=== PATIENT | male | born 1960 | race Caucasian/White ===

== ENCOUNTER → 2020-09-13 12:56 | Outpatient (BNVA) | payer MEDICARE, MEDICAID, SELFPAY | PROVIDERS: PCP Physician Assistant; Referring Provider Physician Assistant; Visit Provider Internal Medicine Endocrinology, Diabetes & Metabolism | DX: E11.3593 Type 2 diabetes mellitus with proliferative diabetic retinopathy without macular edema, bilateral (principal); E11.42 Type 2 diabetes mellitus with diabetic polyneuropathy; Z79.4 Long term (current) use of insulin; I10 Essential (primary) hypertension; E78.5 Hyperlipidemia, unspecified; E66.3 Overweight; Z68.29 Body mass index [BMI] 29.0-29.9, adult | CPT/HCPCS: 82947; 99212 ==

== ENCOUNTER → 2020-09-19 08:51 | Outpatient (BNVA) | payer MEDICARE, MEDICAID, SELFPAY | PROVIDERS: PCP Physician Assistant; Referring Provider Physician Assistant; Visit Provider Nurse Practitioner Family | DX: G47.33 Obstructive sleep apnea (adult) (pediatric) (principal); E11.42 Type 2 diabetes mellitus with diabetic polyneuropathy; E11.3599 Type 2 diabetes mellitus with proliferative diabetic retinopathy without macular edema, unspecified eye; H54.8 Legal blindness, as defined in USA; Z88.0 Allergy status to penicillin; Z99.89 Dependence on other enabling machines and devices; Z79.4 Long term (current) use of insulin; Z79.899 Other long term (current) drug therapy | CPT/HCPCS: 99212 ==

== ENCOUNTER 2020-11-24 07:36 | Outpatient (REF) | payer MEDICARE, MEDICAID, SELFPAY ==
[2020-11-24 10:17] LABS: MANUAL DIFF FLAG NO
[2020-11-24 10:24] LABS: Basophils Percent Auto 0.5 % (0-2); Eosinophils Absolute Auto 0.1 X10*3/uL (0.0-0.4); Eosinophils Percent Auto 1.6 % (0-4); Hematocrit 37.1 % (42-52); Hemoglobin 11.8 g/dl (14.0-18.0); Imm Gran Abs Auto 0.01 X10*3/uL (0.00-0.03); Imm Gran Pct Auto 0.2 % (0.0-0.4); Lymphocytes Absolute Auto 1.9 X10*3/uL (1.2-4.9); Lymphocytes Percent Auto 33.6 % (20-40); Mean Corpuscular HGB Conc 31.8 g/dl (31.0-36.0); Mean Corpuscular Hemoglobin 25.9 pg (27.0-33.0); Mean Corpuscular Volume 81.5 fL (80-98); Mean Platelet Volume 11.2 fL (9.4-12.4); Monocytes Absolute Auto 0.4 X10*3/uL (0.1-1.2); Monocytes Percent Auto 7.8 % (2-11); Neutrophils Absolute Auto 3.2 X10*3/uL (2.0-8.3); Neutrophils Percent Auto 56.3 % (45-73); Platelet Count 221 X10*3/uL (160-400); Red Blood Count 4.55 X10*6/uL (4.60-5.80); Red Cell Distribution Width 13.5 % (11.0-16.0); White Blood Count 5.6 X10*3/uL (4.8-10.8)
[2020-11-24 10:53] LABS: Alanine Aminotransferase 13 U/L (0-40); Albumin Level 4.1 g/dL (3.5-5.0); Alkaline Phosphatase 63 U/L (39-117); Anion Gap 15 (12-20); Aspartate Amino Transferase 13 U/L (5-37); Bilirubin Total 0.3 mg/dL (0.0-1.0); Blood Urea Nitrogen 18 mg/dL (9-16); Calcium 9.1 mg/dL (8.4-10.2); Carbon Dioxide 27 mmol/L (22-29); Chloride 103 mmol/L (96-108); Cholesterol 118 mg/dL; Estimated Glomerular Filt Rate > 60; Glucose Fasting 172 mg/dL (60-99); HDL Cholesterol 46 mg/dL; LDL Cholesterol Calculated 54 mg/dl; Sodium 140 mmol/L (135-145); Total Protein 6.9 g/dL (6.5-8.0); Triglycerides 94 mg/dL
[2020-11-24 11:01] LABS: Creatinine Urine 228.98 mg/dL; Microalbum/Creatinine Ratio Ur 10.9 ug/mg cr
[2020-11-24 11:14] LABS: Prostate Specific Antigen Scr 0.39 ng/mL (<0.05-4.0); TSH reflex Free T4 1.73 mIU/mL (0.32-4.0)
[2020-11-26 01:28] LABS: LDL Cholesterol Direct 56 mg/dL (<100)
[2020-12-03 18:28] LABS: Fructosamine 314 umol/L (205-285)
== END 2020-11-24 07:37 | disposition home or self-care (01) ==
LOC: HO.10HDL 07:36
PROVIDERS: Absent Provider Internal Medicine Endocrinology, Diabetes & Metabolism; Visit Provider Physician Assistant
DX: E11.3393 Type 2 diabetes mellitus with moderate nonproliferative diabetic retinopathy without macular edema, bilateral (principal); I10 Essential (primary) hypertension; E78.5 Hyperlipidemia, unspecified; E78.00 Pure hypercholesterolemia, unspecified; Z12.5 Encounter for screening for malignant neoplasm of prostate; Z79.4 Long term (current) use of insulin
CPT/HCPCS: 36415; 80053; 80061; 82043; 82985; 83721; 84153; 84443; 85025

== ENCOUNTER 2020-12-07 14:12 | Outpatient (REF) | payer MEDICARE, MEDICAID, SELFPAY | END 2020-12-07 14:13 | disposition home or self-care (01) | LOC: HO.US 14:12 | PROVIDERS: Visit Provider Physician Assistant | DX: Z13.89 Encounter for screening for other disorder (principal) ==

== ENCOUNTER → 2020-12-13 11:38 | Outpatient (BNVA) | payer MEDICARE, MEDICAID, SELFPAY | PROVIDERS: PCP Physician Assistant; Visit Provider Internal Medicine Endocrinology, Diabetes & Metabolism | DX: Z13.89 Encounter for screening for other disorder (principal) | CPT/HCPCS: Q3014 ==

== ENCOUNTER 2020-12-25 13:04 | Outpatient (REF) | payer MEDICARE, MEDICAID, SELFPAY ==
--- NOTE | ~2020-12-25 | US_ITS ---
EXAMINATION: RIGHT and LEFT LOWER EXTREMITY VENOUS ULTRASOUND (Reflux Exam) CLINICAL INDICATION: Peripheral vascular disease. Evaluate for venous insufficiency. COMPARISON: None. TECHNIQUE: Color flow triplex imaging and compression Doppler was performed to evaluate both the deep and the superficial systems bilaterally. To evaluate the superficial system, the examination was performed in the upright position. Color-flow Doppler ultrasound and compression ultrasound were utilized. In addition, maneuvers were utilized to demonstrate reflux. FINDINGS: 1. DEEP VENOUS ULTRASOUND OF THE RIGHT LOWER EXTREMITY: Respiratory variation, normal compression and augmented flow are noted in the right common femoral vein as well as the right popliteal vein and there is no evidence of deep venous thrombosis at these locations. There is no evidence of reflux in the deep system in either the common femoral vein or the popliteal vein. There is no evidence of a Aparicio's cyst. 2. SUPERFICIAL ULTRASOUND WITH DOPPLER OF RIGHT LOWER EXTREMITY: The right great saphenous vein at the saphenofemoral junction measures 9 mm, at the mid thigh 4 mm, [id number] 4 mm, [id number] 4 mm, at mid calf 2 mm and at the ankle measures 2 mm. There is no reflux demonstrated in the right great saphenous vein. The right small saphenous vein measures 1-5 mm and shows no reflux. There is calcification along the wall of the greater saphenous vein in the proximal thigh near the saphenofemoral junction and short segment in the calf. Findings are suggestive of changes from old thrombophlebitis. There is a bumper operator in the proximal calf measuring 2 mm and distal calf measuring 4 mm and do not demonstrate reflux. There are varicosities in the proximal and distal calf measuring 3 and 4 mm that do not demonstrate reflux. There is right inguinal lymphadenopathy. 3. DEEP VENOUS ULTRASOUND OF THE LEFT LOWER EXTREMITY: Respiratory variation, normal compression and augmented flow are noted in the left common femoral vein as well as the left popliteal vein and there is no evidence of deep venous thrombosis at these locations. There is no evidence of reflux in the deep system in either the common femoral vein or the popliteal vein. . There is no evidence of a Aparicio's cyst. 4. SUPERFICIAL ULTRASOUND WITH DOPPLER OF LEFT LOWER EXTREMITY: Left great saphenous vein at the saphenofemoral junction measures 14 mm, at the mid thigh 4 mm, [id number] 4 mm, [id number]-[id number] 3 mm, at mid calf 4 mm and at the ankle measures 3 mm. There is reflux in the right greater saphenous vein measuring 1.8 seconds at the mid calf and 0.6 seconds at the ankle. There is peripheral calcification in the left greater saphenous vein in the proximal soft thigh near the saphenofemoral junction and short segment in the calf suggestive of changes from old revisional thrombophlebitis. The left small saphenous vein measures 2-3 mm and demonstrates 1.7 second reflux in the distal calf. There is a bumper operator off the gastrocnemius vein that measures 4 mm and does not demonstrate reflux. There are varicosities in the mid thigh and calf measuring 3 to 4 mm but do not demonstrate reflux. There is a varicosity in the mid calf that measures 3 mm that demonstrates echogenic material suggestive of superficial thrombophlebitis, for example image 146. US/US venous duplex LE BI IMPRESSION: 1. No evidence of reflux or thrombus in the common femoral veins or popliteal veins bilaterally. 2. No right saphenous vein reflux. Left greater saphenous vein reflux in the mid calf and ankle measuring maximum 1.8 seconds. There is wall calcification of the bilateral greater saphenous veins suggestive of changes from old thrombophlebitis. There is evidence of mild acute superficial thrombophlebitis in a varicosity that communicates with the left greater saphenous vein in the mid calf.
== END 2020-12-25 13:05 | disposition home or self-care (01) ==
LOC: HO.US 13:04
PROVIDERS: PCP Physician Assistant; Visit Provider Physician Assistant
DX: I73.89 Other specified peripheral vascular diseases (principal); I87.2 Venous insufficiency (chronic) (peripheral); I73.9 Peripheral vascular disease, unspecified
CPT/HCPCS: 93970

== ENCOUNTER → 2021-01-11 13:15 | Outpatient (BNVA) | payer MEDICARE, MEDICAID, SELFPAY | PROVIDERS: PCP Physician Assistant; Visit Provider Surgery Vascular Surgery | DX: I73.9 Peripheral vascular disease, unspecified (principal); I83.11 Varicose veins of right lower extremity with inflammation | CPT/HCPCS: 99202 ==

== ENCOUNTER → 2021-01-18 12:28 | Outpatient (BNVA) | payer MEDICARE, MEDICAID, SELFPAY | PROVIDERS: PCP Physician Assistant; Referring Provider Physician Assistant; Visit Provider Internal Medicine Endocrinology, Diabetes & Metabolism | DX: E11.3393 Type 2 diabetes mellitus with moderate nonproliferative diabetic retinopathy without macular edema, bilateral (principal); E11.3593 Type 2 diabetes mellitus with proliferative diabetic retinopathy without macular edema, bilateral; E11.42 Type 2 diabetes mellitus with diabetic polyneuropathy; Z79.4 Long term (current) use of insulin; I10 Essential (primary) hypertension; E78.5 Hyperlipidemia, unspecified; E66.3 Overweight | CPT/HCPCS: 82947; 99212 ==

== ENCOUNTER 2021-01-24 09:48 | Outpatient (REF) | payer MEDICARE, MEDICAID, SELFPAY ==
--- NOTE | ~2021-01-24 | US_ITS ---
EXAMINATION: COLOR-FLOW DUPLEX IMAGING OF THE BILATERAL LOWER EXTREMITY ARTERIAL SYSTEM. VELOCITY MEASUREMENTS THROUGHOUT THE FEMORAL ARTERIES WITH ANKLE-BRACHIAL PERIPHERAL ARTERIAL TESTING. CLINICAL INFORMATION: This is a 60-year-old male with diabetes. Claudication.. Interventional Radiologist: Chandu Carias M.D., F.S.I.R., F.A.C.R. RIGHT FEMORAL RUNOFF VELOCITIES: The right common femoral artery measures 162 cm/s and triphasic. The right profunda femoral artery is 81 cm/s and is biphasic. Right proximal superficial femoral artery measures 90 cm/s and triphasic. Mid superficial femoral artery is 101 cm/s and triphasic. Distal right superficial femoral artery measures 80 cm/s and is triphasic. Right popliteal velocity measures 74 cm/s and is triphasic. The posterior tibial artery velocity measures 42 cm/s and was biphasic. The right ankle-brachial index is 1.29. LEFT FEMORAL RUNOFF VELOCITIES: The left common femoral artery measures 122 cm/s and triphasic. The left profunda femoral artery is 126 cm/s and is triphasic. Left proximal superficial femoral artery measures 103 cm/s and biphasic. Mid superficial femoral artery is 114 cm/s and triphasic. Distal left superficial femoral artery measures 144 cm/s and is triphasic. Left popliteal velocity measures 89 cm/s and is biphasic. The posterior tibial artery velocity measures 86 cm/s and was triphasic. The left ankle brachial index is 1.29. US/US SHERWIN complete IMPRESSION: 1. Normal bilateral resting peripheral arterial testing without evidence of hemodynamically significant stenosis.
--- NOTE | ~2021-01-24 | US_ITS ---
EXAMINATION: COLOR-FLOW DUPLEX IMAGING OF THE BILATERAL LOWER EXTREMITY ARTERIAL SYSTEM. VELOCITY MEASUREMENTS THROUGHOUT THE FEMORAL ARTERIES WITH ANKLE-BRACHIAL PERIPHERAL ARTERIAL TESTING. CLINICAL INFORMATION: This is a 60-year-old male with diabetes. Claudication.. Interventional Radiologist: Chandu Carias M.D., F.S.I.R., F.A.C.R. RIGHT FEMORAL RUNOFF VELOCITIES: The right common femoral artery measures 162 cm/s and triphasic. The right profunda femoral artery is 81 cm/s and is biphasic. Right proximal superficial femoral artery measures 90 cm/s and triphasic. Mid superficial femoral artery is 101 cm/s and triphasic. Distal right superficial femoral artery measures 80 cm/s and is triphasic. Right popliteal velocity measures 74 cm/s and is triphasic. The posterior tibial artery velocity measures 42 cm/s and was biphasic. The right ankle-brachial index is 1.29. LEFT FEMORAL RUNOFF VELOCITIES: The left common femoral artery measures 122 cm/s and triphasic. The left profunda femoral artery is 126 cm/s and is triphasic. Left proximal superficial femoral artery measures 103 cm/s and biphasic. Mid superficial femoral artery is 114 cm/s and triphasic. Distal left superficial femoral artery measures 144 cm/s and is triphasic. Left popliteal velocity measures 89 cm/s and is biphasic. The posterior tibial artery velocity measures 86 cm/s and was triphasic. The left ankle brachial index is 1.29. US/US arterial duplex LE BI IMPRESSION: 1. Normal bilateral resting peripheral arterial testing without evidence of hemodynamically significant stenosis.
== END 2021-01-24 09:49 | disposition home or self-care (01) ==
LOC: HO.US 09:48
PROVIDERS: Visit Provider Surgery Vascular Surgery
DX: I87.2 Venous insufficiency (chronic) (peripheral) (principal); I73.9 Peripheral vascular disease, unspecified; I73.89 Other specified peripheral vascular diseases
CPT/HCPCS: 93923; 93925

== ENCOUNTER → 2021-02-06 09:54 | Outpatient (BNVA) | payer MEDICARE, MEDICAID, SELFPAY | PROVIDERS: PCP Physician Assistant; Visit Provider Surgery Vascular Surgery | DX: I73.9 Peripheral vascular disease, unspecified (principal) | CPT/HCPCS: 99212 ==

== ENCOUNTER → 2021-03-15 12:23 | Outpatient (BNVA) | payer MEDICARE, MEDICAID, SELFPAY | PROVIDERS: PCP Physician Assistant; Visit Provider Internal Medicine Endocrinology, Diabetes & Metabolism | DX: E11.3593 Type 2 diabetes mellitus with proliferative diabetic retinopathy without macular edema, bilateral (principal); E11.42 Type 2 diabetes mellitus with diabetic polyneuropathy; E11.3393 Type 2 diabetes mellitus with moderate nonproliferative diabetic retinopathy without macular edema, bilateral; E78.5 Hyperlipidemia, unspecified; E66.3 Overweight; Z68.29 Body mass index [BMI] 29.0-29.9, adult; I10 Essential (primary) hypertension; Z79.4 Long term (current) use of insulin; Z71.3 Dietary counseling and surveillance | CPT/HCPCS: 82947; 99212 ==

== ENCOUNTER 2021-04-19 08:18 | Outpatient (REF) | payer MEDICARE, MEDICAID, SELFPAY | END 2021-04-19 08:19 | disposition home or self-care (01) | LOC: HO.LAB 08:18 | PROVIDERS: Visit Provider Internal Medicine | DX: Z20.822 Contact with and (suspected) exposure to COVID-19 (principal) | CPT/HCPCS: C9803; U0003; U0005 ==